=== PATIENT | male | born 1955 | race Caucasian/White ===

== ENCOUNTER → 2016-10-03 | Outpatient (CLI) | payer MEDICARE ==
[~2016-10-03] MED LIST: ADVAIR HFA120 INHAL1 IH; ALBUTEROL SULF8.5 GM IH; ALLOPURINOL300 MG PO; ASPIRIN325 MG PO; ATENOLOL50 MG PO; CILOSTAZOL50 MG PO; CLEOCIN300 MG PO; COUMADIN5 MG PO; CYMBALTA60 MG PO; DICLOFENAC SODI75 MG PO; DOLOPHINE HCL10 MG PO; DULERA 100 MCG/13 GM IH; DURAGESIC25 MCG TD; GABAPENTIN300 MG PO; GEMFIBROZIL600 MG PO; GLUCOPHAGE1000 MG PO; HYDROCHLOROTHIA25 MG PO; HYDROCODON-ACE1 EAC7 PO; HYDROCODON-ACE1 EAC8 PO; HYDROCODON-ACE1 EAC9 PO; LEVOFLOXACIN750 MG PO; LYRICA50 MG PO; MELOXICAM15 MG PO; METFORMIN HCL1000 MG PO; METHOCARBAMOL750 MG PO; ONE DAILY FOR1 EACH PO; PLETAL50 MG PO; PROAIR HFA8.5 GM IH; SIMVASTATIN40 MG PO; SYMBICORT60 INHALAT IH; TRAMADOL HCL50 MG PO; TRIAMCINOLONE A15 GM TP; ULTRAM50 MG PO; VERAPAMIL HCL120 MG PO; WARFARIN SODIU2.5 MG PO; WARFARIN SODIUM5 MG PO; ZYLOPRIM300 MG PO
== END | disposition home or self-care (01) ==
LOC: CDC 15:54
DX: I49.9 Cardiac arrhythmia, unspecified (principal); R94.31 Abnormal electrocardiogram [ECG] [EKG]; H25.11 Age-related nuclear cataract, right eye
CPT/HCPCS: 93000

== ENCOUNTER 2017-01-14 09:33 | Day surgery (SDC) | payer OTHER ==
[~2017-01-14] VITALS: Ht 188 cm; Wt 129.8 kg
== END 2017-01-14 10:58 | disposition home or self-care (01) ==
LOC: PAIN 09:33 → SDC 11:00
DX: M47.816 Spondylosis without myelopathy or radiculopathy, lumbar region (principal); M51.36 Other intervertebral disc degeneration, lumbar region; M54.5 Low back pain; E11.40 Type 2 diabetes mellitus with diabetic neuropathy, unspecified; E66.01 Morbid (severe) obesity due to excess calories; Z68.36 Body mass index [BMI] 36.0-36.9, adult; M79.1 Myalgia; F41.9 Anxiety disorder, unspecified; J44.9 Chronic obstructive pulmonary disease, unspecified; Z86.718 Personal history of other venous thrombosis and embolism; Z79.01 Long term (current) use of anticoagulants; E78.5 Hyperlipidemia, unspecified; Z87.891 Personal history of nicotine dependence; Z79.82 Long term (current) use of aspirin; Z79.891 Long term (current) use of opiate analgesic; Z79.84 Long term (current) use of oral hypoglycemic drugs
CPT/HCPCS: J1030; S0020

== ENCOUNTER 2017-06-11 10:40 | Day surgery (SDC) | payer OTHER ==
[~2017-06-11] VITALS: Ht 188 cm; Wt 129.7 kg
[~2017-06-11 10:40] MED LIST changes: +COUMADIN3 MG PO; +COUMADIN4 MG PO; -COUMADIN5 MG PO; -GLUCOPHAGE1000 MG PO; +GLUCOPHAGE500 MG PO
== END 2017-06-11 13:30 | disposition home or self-care (01) ==
LOC: PAIN 10:40
PROVIDERS: Anesthesiology Pain Medicine
DX: M54.5 Low back pain (principal); Z53.09 Procedure and treatment not carried out because of other contraindication
CPT/HCPCS: 82948; 85610; J1100; J2250; J3010

== ENCOUNTER 2017-06-11 11:09 | Day surgery (SDC) | payer OTHER | END 2017-06-11 11:10 | disposition home or self-care (01) | LOC: CATH 11:09 | DX: M54.16 Radiculopathy, lumbar region (principal); E11.9 Type 2 diabetes mellitus without complications; J45.909 Unspecified asthma, uncomplicated; Z79.84 Long term (current) use of oral hypoglycemic drugs ==

== ENCOUNTER 2017-07-30 09:52 | Day surgery (SDC) | payer OTHER ==
[~2017-07-30] VITALS: Ht 188 cm; Wt 129.8 kg
[2017-07-30 11:03] LABS: PTT 33.9 SEC (25-37)
== END 2017-07-30 12:00 | disposition home or self-care (01) ==
LOC: PAIN 09:52 → SDC 10:45 → PAIN 12:00
PROVIDERS: Anesthesiology Pain Medicine
DX: M54.16 Radiculopathy, lumbar region (principal); J44.9 Chronic obstructive pulmonary disease, unspecified; I10 Essential (primary) hypertension; Z86.73 Personal history of transient ischemic attack (TIA), and cerebral infarction without residual deficits; M19.90 Unspecified osteoarthritis, unspecified site; M10.9 Gout, unspecified; I73.9 Peripheral vascular disease, unspecified; Z95.820 Peripheral vascular angioplasty status with implants and grafts; Z87.891 Personal history of nicotine dependence; Z79.01 Long term (current) use of anticoagulants
CPT/HCPCS: 82948; 85610; 85730; J1100; J2250; J3010

== ENCOUNTER 2018-01-02 09:45 | Day surgery (SDC) | payer OTHER ==
[~2018-01-02] VITALS: Ht 188 cm; Wt 125.6 kg
[~2018-01-02 09:45] MED LIST changes: +COUMADIN1 MG PO; +COUMADIN5 MG PO; +PERCOCET 7.51 TABLET PO
== END 2018-01-02 11:47 | disposition home or self-care (01) ==
LOC: PAIN 09:45 → SDC 10:45 → PAIN 10:45
PROVIDERS: Anesthesiology Pain Medicine
DX: M47.816 Spondylosis without myelopathy or radiculopathy, lumbar region (principal); M46.96 Unspecified inflammatory spondylopathy, lumbar region; M19.072 Primary osteoarthritis, left ankle and foot; E11.40 Type 2 diabetes mellitus with diabetic neuropathy, unspecified; Z87.891 Personal history of nicotine dependence; E11.51 Type 2 diabetes mellitus with diabetic peripheral angiopathy without gangrene; I10 Essential (primary) hypertension; M10.9 Gout, unspecified; J44.9 Chronic obstructive pulmonary disease, unspecified; E78.5 Hyperlipidemia, unspecified; E66.01 Morbid (severe) obesity due to excess calories; Z68.35 Body mass index [BMI] 35.0-35.9, adult; Z79.891 Long term (current) use of opiate analgesic
CPT/HCPCS: 82948; J2250

== ENCOUNTER 2018-01-09 09:28 | Day surgery (SDC) | payer OTHER ==
[~2018-01-09] VITALS: Ht 188 cm; Wt 125.6 kg
== END 2018-01-09 12:02 | disposition home or self-care (01) ==
LOC: PAIN 09:28 → SDC 10:45 → PAIN 10:45
PROVIDERS: Anesthesiology Pain Medicine
DX: M47.816 Spondylosis without myelopathy or radiculopathy, lumbar region (principal); M51.16 Intervertebral disc disorders with radiculopathy, lumbar region; M79.1 Myalgia; E78.5 Hyperlipidemia, unspecified; I10 Essential (primary) hypertension; E66.01 Morbid (severe) obesity due to excess calories; Z68.35 Body mass index [BMI] 35.0-35.9, adult; J44.9 Chronic obstructive pulmonary disease, unspecified; E11.40 Type 2 diabetes mellitus with diabetic neuropathy, unspecified; Z86.718 Personal history of other venous thrombosis and embolism; Z87.891 Personal history of nicotine dependence; Z79.01 Long term (current) use of anticoagulants
CPT/HCPCS: 82948; J1030; S0020